=== PATIENT | female | born 1950 | race Caucasian/White ===

== ENCOUNTER 2017-08-11 13:01 | Emergency (ER) | payer MEDICARE | END 2017-08-11 14:44 | disposition home or self-care (01) | LOC: EDH 13:01 | DX: M25.562 Pain in left knee (principal); R60.0 Localized edema; Z88.2 Allergy status to sulfonamides; I87.2 Venous insufficiency (chronic) (peripheral) | CPT/HCPCS: 73562; 93971 ==